=== PATIENT | male | born 1960 | race Caucasian/White ===

== ENCOUNTER 2016-02-20 23:54 | Inpatient (IN) | payer MEDICARE, MEDICAID ==
[~2016-02-20] VITALS: Ht 177.8 cm; Wt 57.4 kg
[~2016-02-20 23:54] MED LIST: ACET325T51 PO; BISA10SU9 RC; CARV25TA2 PO; CINA60TA PO; DIAZ5TAB3 PO; DOCU100C8 PO; Lactulose PO; SEVE2.4P PO; VIT1TABL50 PO
[2016-02-21] VITALS (10 sets, daily range): BP systolic 110–148; BP diastolic 67–75; PULSE 76–102; RESP 16–20; O2SAT 98–100
--- NOTE | 2016-02-21 00:09 | ED.REPORT ---
HPI-General Illness Date of Service Feb 21, 2016 ED Provider: Cassius Rondon MD This patient is a 55 year old male with a history of MS and on dialysis for renal failure brought in by EMS due to upper jaw pain. Pt. states pain started around 2100 while in bed and lasted 2 hrs. Since then, he has taken diazepam and Tylenol. He admits to diaphoresis that stopped upon arrival to ED and denies SOB, back pain, vision changes, speech changes, difficulty swallowing, chest pain, or abdominal pain. The pt denies hx of DE or previous episodes of similar symptoms. Nursing Notes Stated Complaint: HYPERCALCEMIA Chief Complaint: ENT & Mouth Nursing Notes Reviewed: Yes Allergies: Coded Allergies: Penicillins (Verified Allergy, Unknown, HIVES, 02/21/16) TAPE (Verified Allergy, Unknown, UNKNOWN, 02/21/16) aspirin (Verified Allergy, Unknown, HIVES, 02/21/16) diphenhydramine (Verified Allergy, Unknown, RASH, 02/21/16) povidone-iodine (Verified Allergy, Unknown, 06/17/14) soap (Verified Allergy, Unknown, 06/17/14) Scheduled ([Lactulose]) 15-30 GM PO PRN 15-30grams for bowel movement Carvedilol (Carvedilol) 25 Mg Tablet 25 MG PO BID Cinacalcet HCl (Sensipar) 60 Mg Tablet 60 MG PO BID Diazepam (Diazepam) 5 Mg Tablet 2.5 MG PO BID Diazepam (Diazepam) 5 Mg Tablet 7.5 MG PO HS Docusate Sodium (Docusate Sodium) 100 Mg Capsule 300 MG PO BID Sevelamer Carbonate (Renvela) 2.4 Gm Powd.pack 2.4 GM PO TID Vit B Cmplx 3/FA/Vit C/Biotin (Nephro-Mery Rx) 1 Each Tablet 1 TAB PO DAILY Scheduled PRN Acetaminophen (Acetaminophen) 325 Mg Tablet 325 MG PO Q4 PRN PRN For Pain Bisacodyl (Bisacodyl Rectal) 10 Mg Supp.rect 10 MG RC DAILY PRN PRN For Constipation Cholecalciferol (Vitamin D3) (Vitamin D3) 1,000 Unit Tab.chew 1,000 UNIT PO BID PRN PRN For Spasm General Time Seen by MD: 00:09 Chief Complaint Other (Upper jaw pain) Hx Obtained From: Patient Arrived By: Ambulance Sudden in Onset?: Yes Onset Occurred: 1 - 4 hours ago Symptom Duration: Since onset Recent Healthcare: No recent hospitalization, Recent doctor visit Similar Sx Previous: No Past Medical History Past Medical History MS melanoma psoriasis renal failure on dialysis Reports: Congestive heart failure, GERD, Hypertension Past Surgical History RT A/V fistula Smoking History Never Smoker Social History Alcohol Use: "Social" Other Social History: Good social support, Local resident Ambulatory Status Independent Review of Systems jaw pain denies changes in speech denies difficulty swallowing Full Review of Systems Respiratory: Denies: Shortness of breath Cardiovascular: Denies: Chest pain GI: Denies: Abdominal pain Musculoskeletal: Denies: Back pain Skin: Reports Diaphoresis (resolved upon arrival to ED) Neurologic: Denies: Vision change Complete sys rev & neg: except as marked. Physical Exam Vital Signs Vital Signs Date Time Temp Pulse Resp B/P Pulse Ox O2 Delivery O2 Flow Rate FiO2 02/21/16 00:06 37.2 100 16 139/72 100 Room Air Initial VS: Reviewed General/Constitutional: Well-developed, Well-nourished Head / Eyes: Atraumatic, Normocephalic, PERRL ENT: Mucous membranes moist, Conjunctiva normal, No scleral icterus Neck: Supple, Non-tender, Full range of motion Respiratory: Breath sounds normal, Clear to auscultation, No respiratory distress Extremities: Vascular intact, Neuro intact Skin: Warm, Dry, No cyanosis Neurologic: Alert, Oriented, Nonfocal Psychiatric: Mood/affect normal, Behavior normal, Normal thought content General/Constitutional: Awake, Alert Cardiovascular: Heart rate NL, Regular rhythm Heart Sounds / Murmur: Positive: Systolic murmur present.. (left upper sternal border) fistula in right upper arm Lower Extremity / Pelvis / MS: Atraumatic, Full range of motion, No edema Interpretation & Diagnostics Lab Results Interpretation Result Diagram: 02/22/16 0342 02/22/16 0342 Test 02/21/16 00:45 Total Bilirubin 0.3mg/dL (0.0-1.2) Aspartate Amino Transf (AST/SGOT) 23U/L (0-50) Alanine Aminotransferase (ALT/SGPT) 49U/L (0-44) Alkaline Phosphatase 105U/L (25-150) Total Protein 6.9g/dL (6.4-8.4) Lipase 188U/L (13-60) Hold Arguelles Top Tube Received (Received) ECG Interpretation ECG Interpretation: Sinus rhythm rate of 92 Peaked T wave in V2 V3 No ST elevation Time: 01:03 Interpreted by: ED physician Re-Eval/Medical Decision Med Decision/Clinical Course 55-year-old male history of end-stage renal disease on dialysis, MS presenting with jaw pain and diaphoresis that started at 9:00 this evening lasted 1-2 hours. Resolved prior to arrival. Potassium is 5.8. Troponins are 0.49. T-wave peaks V2 V3. Discussed with Dr. Murguia cardiology who recommended heparin drip, aspirin, Plavix, statin, stat echo and admission. Discussed with renal Dr Bowen who recommends Kayexalate 15 g and they will dialyze in the morning. Full code. Source of Hx: Old records, EMS Time of Eval: 02:21 Patient Status: Condition unchanged Re-Evaluation/Progress Note: Pt rechecked, who is resting. He is informed of lab results, diagnosis, and plan for admission. Pt. understands and agrees with plan. All questions have been addressed at this time. Consultation #1: Referral / Consult Name: Nicolas Reich MD Consulted With: Cardiology Call Returned at: 02:19 Program/Music Director: Agrees with eval, Agrees with plan Note: Consulted with Dr. Reich, pediatric psychiatrist, and he recommends heparin drip, aspirin, Plavix. Consultation #2: Referral / Consult Name: Wendy Fairbanks MD Consulted With: Nephrology Call Returned at: 02:24 Program/Music Director: Agrees with eval, Agrees with plan Note: Consulted with Dr. Fairbanks, hairspring vibrator, regarding pt's case. He agrees with the evaluation and plan. Consultation #3: Referral / Consult Name: Amanda Matamoros MD Consulted With: Hospitalist Call Returned at: 02:29 Program/Music Director: Will see patient, Agrees with eval, Agrees with plan, Accepts admit Note: Spoke with Dr. Matamoros, hospitalist, regarding pt's case. Dr. Matamoros agrees with the evaluation and agrees to admit the pt. Counseled Regarding: Diagnosis, Lab results, Need for admission Discharge & Departure Primary Impression: NSTEMI (non-ST elevated myocardial infarction) Additional Impression: Hyperkalemia Disposition: ADMITTED TO HOSPITAL Discharge Condition All VS Reviewed: Yes Condition: Stable Referrals: Dewey Moe MD [facility] Crit Care Except Billable Proc Time Spent: 105-134 minutes Services Performed: Patient management by me, Time spent at bedside, Reviewing test results, Reviewing imaging, Discussing patient care, Documentation in record, Time with fam/surrogate Scribe Attestation Portions of this note were transcribed by Simona Green and Alexsandra Yun. I, Dr. Rondon personally performed the history, physical exam and medical decision-making; I reviewed and confirmed the accuracy of the information in the transcribed note. Signed by: Simona Green and Janiya Ortiz, 2016 and 0342. copies to: Dewey Moe MD; [facility] Cassius Rondon MD Feb 21, 2016 00:09 Ariela Yun [Alexsandra] Feb 21, 2016 00:46 SIMONA GREEN Feb 21, 2016 03:42 ECG Interpretation ECG Interpretation: Sinus rhythm rate of 92 Peaked T wave in V2 V3 No ST elevation Time: 01:03 Interpreted by: ED physician Re-Eval/Medical Decision Med Decision/Clinical Course 55-year-old male history of end-stage renal disease on dialysis, MS presenting with jaw pain and diaphoresis that started at 9:00 this evening lasted 1-2 hours. Resolved prior to arrival. Potassium is 5.8. Troponins are 0.49. T-wave peaks V2 V3. Discussed with Dr. Murguia cardiology who recommended heparin drip, aspirin, Plavix, statin, stat echo and admission. Discussed with renal Dr Bowen who recommends Kayexalate 15 g and they will dialyze in the morning. Full code. Source of Hx: Old records, EMS Time of Eval: 02:21 Patient Status: Condition unchanged Re-Evaluation/Progress Note: Pt rechecked, who is resting. He is informed of lab results, diagnosis, and plan for admission. Pt. understands and agrees with plan. All questions have been addressed at this time. Consultation #1: Referral / Consult Name: Nicolas Reich MD Consulted With: Cardiology Call Returned at: 02:19 Program/Music Director: Agrees with eval, Agrees with plan Note: Consulted with Dr. Reich, pediatric psychiatrist, and he recommends heparin drip, aspirin, Plavix. Consultation #2: Referral / Consult Name: Wendy Fairbanks MD Consulted With: Nephrology Call Returned at: 02:24 Program/Music Director: Agrees with eval, Agrees with plan Note: Consulted with Dr. Fairbanks, hairspring vibrator, regarding pt's case. He agrees with the evaluation and plan. Consultation #3: Referral / Consult Name: Amanda Matamoros MD Consulted With: Hospitalist Call Returned at: 02:29 Program/Music Director: Will see patient, Agrees with eval, Agrees with plan, Accepts admit Note: Spoke with Dr. Matamoros, hospitalist, regarding pt's case. Dr. Matamoros agrees with the evaluation and agrees to admit the pt. Counseled Regarding: Diagnosis, Lab results, Need for admission Discharge & Departure Primary Impression: NSTEMI (non-ST elevated myocardial infarction) Additional Impression: Hyperkalemia Disposition: ADMITTED TO HOSPITAL Discharge Condition All VS Reviewed: Yes Condition: Stable Referrals: Dewey Moe MD [facility] Crit Care Except Billable Proc Time Spent: 105-134 minutes Services Performed: Patient management by me, Time spent at bedside, Reviewing test results, Reviewing imaging, Discussing patient care, Documentation in record, Time with fam/surrogate Scribe Attestation Portions of this note were transcribed by Simona Green and Alexsandra Yun. I, Dr. Rondon personally performed the history, physical exam and medical decision-making; I reviewed and confirmed the accuracy of the information in the transcribed note. Signed by: Simona Green and Janiya Ortiz, 2016 and 0342. copies to: Dewey Moe MD; [facility] Cassius Rondon MD Feb 21, 2016 00:09 Areila Yun [Alexsandra] Feb 21, 2016 00:46 SIMONA GREEN Feb 21, 2016 03:42
[2016-02-21 01:23] LABS: BASOPHILS % (AUTO) 0.7 % (0-3); EOSINOPHILS % (AUTO) 5.3 % (0-5); MONOCYTES % (AUTO) 5.1 % (4-12); Mean Corpuscular Hemoglobin 33.4 pg (27.0-35.0); NEUTROPHILS % (AUTO) 63.3 % (40-74); Platelet Count 158 bil/L (150-400)
[2016-02-21 01:46] LABS: Magnesium 3.1 mg/dL (1.6-2.6)
[2016-02-21] MEDS ORDERED: Heparin 25K Unit/500mL 0.45 NS 25,000 UNIT in IV Premix 1 EACH IV ONE (02:25)
[2016-02-21] MEDS ORDERED: Heparin 5,000 Unit/mL Inj IVPUSH ONE (02:25)
[2016-02-21] MEDS ORDERED: Alum-Mag Hydrox-Simeth 30 mL Suspension PO PRN ×2 (02:30→03:30)
[2016-02-21] MEDS ORDERED: Ondansetron 2 mg/mL 2 mL Inj IVPUSH PRN ×2 (02:30→03:30)
[2016-02-21] MEDS ORDERED: Heparin 5,000 Unit/mL Inj IVPUSH PRN (03:30)
[2016-02-21] MEDS ORDERED: Atropine 1 mg/10 mL (Code) Syringe IVPUSH PRN (03:30)
[2016-02-21] MEDS ORDERED: Senna-Docusate 8.6-50 mg Tablet PO PRN (03:30)
[2016-02-21] MEDS ORDERED: Polyethylene Glycol (PEG) 17 Gm Powder PO PRN (03:30)
[2016-02-21] MEDS: Sodium Chloride LOK Flush 10 mL Syringe IVFLUSH SCH ×2 (03:42→18:29)
--- NOTE | 2016-02-21 04:02 | PCM.HPMED ---
Subjective Date of Service Feb 21, 2016 Primary Provider: Admitting Physician: Amanda Matamoros MD Primary Care Physician: Nopcp Attending Physician: Amanda Matamoros MD Admit Status: From the Emergency Department, Full Admit, [facility] Telemetry Chief Complaint: Left upper jaw pain History of Present Illness: This is a 55-year-old male with a history of multiple sclerosis who essentially not able to use his arms bilaterally and legs. He also has end-stage renal disease is on hemodialysis followed by Dr. Jiang's group. He had several hours of left sided jaw pain. Started around 9:00 while he was lying in bed. Lasted for approximately 2 hours. He denies any history of coronary artery disease. He felt diaphoretic with this but did not have any shortness of breath. Denied any chest pain abdominal pain or nausea or vomiting. His dialysis days are Saturday. He does note that his potassium has been running high and prior to last dialysis on Saturday it was 6.2. He was given Kayexalate. His evaluation in the emergency room includes potassium level of 5.8 with BUN of 86 creatinine of 6.96 this first troponin was 0.49. He did have some T-wave peaks in V2 and V3. ER physician contacted Dr. Lucia damon who recommended ASA Plavix statin heparin drip along with an echocardiogram and he will see the patient in the a.m. Also nephrology Dr. Gan was called and recommended Kayexalate 15 g by mouth and will dialyze in the morning. Review of Systems: Patient denies any fevers chills denies cough or other review of systems are reviewed and are negative except for as in history of present illness. Allergies Coded Allergies: Penicillins (Verified Allergy, Unknown, HIVES, 02/21/16) TAPE (Verified Allergy, Unknown, UNKNOWN, 02/21/16) aspirin (Verified Allergy, Unknown, HIVES, 02/21/16) diphenhydramine (Verified Allergy, Unknown, RASH, 02/21/16) povidone-iodine (Verified Allergy, Unknown, 06/17/14) soap (Verified Allergy, Unknown, 06/17/14) Home Medications Scheduled ([Lactulose]) 15-30 GM PO PRN 15-30grams for bowel movement Carvedilol (Carvedilol) 25 Mg Tablet 25 MG PO BID Cinacalcet HCl (Sensipar) 60 Mg Tablet 60 MG PO DAILY Diazepam (Diazepam) 5 Mg Tablet 5 MG PO BID Diazepam (Diazepam) 5 Mg Tablet 5 MG PO HS Docusate Sodium (Docusate Sodium) 100 Mg Capsule 300 MG PO BID Sevelamer Carbonate (Renvela) 2.4 Gm Powd.pack 2.4 GM PO TID Vit B Cmplx 3/FA/Vit C/Biotin (Nephro-Mery Rx) 1 Each Tablet 1 TAB PO DAILY Scheduled PRN Acetaminophen (Acetaminophen) 325 Mg Tablet 325 MG PO Q4 PRN PRN For Pain Bisacodyl (Bisacodyl Rectal) 10 Mg Supp.rect 10 MG RC DAILY PRN PRN For Constipation PMH Past Medical History MS melanoma psoriasis Reports: Congestive heart failure, GERD, Hypertension Past Surgical History RT A/V fistula Family History Denies any family history of coronary artery disease or renal disease Social History Hx Alcohol Use: Yes (Quit drinking alcohol 20 years ago) Hx Substance Use: No Hx Tobacco Use: No Smoking Status: Never Smoker Living Arrangement: with Family Exam Vital Signs Vital Sign - Last Date Time Temp Pulse Resp B/P Pulse Ox O2 Delivery O2 Flow Rate FiO2 02/21/16 00:06 37.2 100 16 139/72 100 Room Air Intake and Output 02/20/16 02/20/16 02/21/16 Cumulative From/Thru 15:00 23:00 07:00 02/21/16 00:06 - 02/21/16 01:31 Intake Total 1000 ml 1000 ml Balance 1000 ml 1000 ml Intake IV Total 1000 ml 1000 ml Exam Constitutional: Middle-aged male in no acute distress Head: Normocephalic/atraumatic Eyes: PERRLA DC EOMI Mouth: No lesions noted Neck: Carotids 2+ over 4 without bruits, no adenopathy Chest: Clear to auscultation Cor: Regular rate and rhythm S1-S2 over 6 systolic ejection murmur Abdomen: Soft nontender bowel sounds present Extremities: No pedal edema noted, has contractures of both upper and lower extremities Psych: Mood and affect appear appropriate Skin: No rashes noted Neuro: Alert and oriented 3, contractures as noted of upper and lower extremities Lab and Diagnostics Labs Laboratory Tests 72 Hours Test 02/21/16 00:45 White Blood Count 4.3th/mm3 (3.8-10.1) Red Blood Count 3.53mil/mm3 (4.40-5.80) Hemoglobin 11.8g/dL (13.8-17.2) Hematocrit 34.6% (41.0-50.0) Mean Corpuscular Volume 98.0fL (81-100) Mean Corpuscular Hemoglobin 33.4pg (27.0-35.0) Mean Corpuscular Hemoglobin Concent 34.1% (32.0-37.0) Red Cell Distribution Width 12.5% (12.3-15.4) Platelet Count 158bil/L (150-400) Neutrophils (%) (Auto) 63.3% (40-74) Lymphocytes (%) (Auto) 25.6% (14-46) Monocytes (%) (Auto) 5.1% (4-12) Eosinophils (%) (Auto) 5.3% (0-5) Basophils (%) (Auto) 0.7% (0-3) Sodium Level 140mEq/L (134-144) Potassium Level 5.8mEq/L (3.5-5.2) Chloride Level 98mEq/L (97-108) Carbon Dioxide Level 24mmol/L (18-29) Blood Urea Nitrogen 86mg/dL (6-24) Creatinine 6.96mg/dL (0.76-1.27) Estimat Glomerular Filtration Rate 9mL/min (>59) Glucose Level 84mg/dL (60-99) Calcium Level 9.0mg/dL (8.5-10.1) Magnesium Level 3.1mg/dL (1.6-2.6) Total Bilirubin 0.3mg/dL (0.0-1.2) Aspartate Amino Transf (AST/SGOT) 23U/L (0-50) Alanine Aminotransferase (ALT/SGPT) 49U/L (0-44) Alkaline Phosphatase 105U/L (25-150) Troponin T 0.490ug/L (0.0-0.011) Total Protein 6.9g/dL (6.4-8.4) Albumin 4.0g/dL (3.4-5.0) Lipase 188U/L (13-60) Hold Arguelles Top Tube Received (Received) Result Diagram: 02/21/16 0045 02/21/16 0045 X-Rays, CTs and MRIs Chest x-ray is pending at the time of this dictation 12-lead ECG Sinus rate of [address] segment changes V2 V3 peak T-wave Assessment & Plan # NSTEMI, acute, present on admission Has elevated troponin with left jaw pain Cardiology was notified by ER MLinus and recommended IV heparin protocol, ASA, Plavix and statin We will check echocardiogram in a.m. We will order nuclear pharmacological stress test in AM Cardiology to see in a.m. We will placed on nitro paste topically # Hyperkalemia with some EKG changes, acute, present on admission Nephrology was notified by ER MLinus and recommended by mouth Kayexalate We will place on telemetry Repeat potassium level in the next several hours # End stage renal disease on hemodialysis, chronic, present on admission Nephrology was notified by ER Elie and will dialyze tomorrow # Multiple sclerosis, chronic, present on admission Currently progressive # DVT prophylaxis Patient currently is on cardiac IV heparin protocol # CODE STATUS Patient is full code Pain Evaluation: Adequate Pain Control GI Prophylaxis: H2 adela VTE Prophylaxis: Other (cardiac IV heparin protocol) Resuscitation Status: CPR: Attempt Resuscitation Time spent 60 minutes Attending Statement Pt seen and examined by myself and agree with above plan. Amanda Matamoros MD Feb 21, 2016 04:02
--- NOTE | 2016-02-21 04:30 | NUR ---
Admit Received report from Mateo Masterson who brought patient to floor total assist to slide to bed from [facility] d/t quadriplegic from end stage MS, dx NSTEMI and hyperkalemia, patient refusing anticoagulants ordered d/t poor reaction in past w/severe bleeding, contracture of hands and feet skin check no open areas some bandaids on back "covering moles that are painful", soft call light placed under chin as he has movement of head and neck only. He is to get dialysis today Addendum: 02/22/16 at 0418 by GUERO JEAN RN Patient refused anticoagulants ordered heparin gtt. plavix and has allergy to aspirin
[2016-02-21 06:25] LABS: TROPONIN T 2.23 ug/L (0.0-0.011)
[2016-02-21 06:38] LABS: Magnesium 3.2 mg/dL (1.6-2.6)
[2016-02-21] MEDS: RENVELA 800 MG PO SCH ×3 (08:30→19:15)
--- NOTE | 2016-02-21 09:03 | DRSVH ---
PROCEDURE: X-RAY CHEST ONE VIEW, PORTABLE ([id number]) INDICATIONS: ELEVATED TROPONIN TECHNIQUE: One view of the chest was acquired. COMPARISON: [facility], , CHEST 1VW (PORTABLE), 11/24/2011, 17:21. FINDINGS: Surgical changes and devices: None. Lungs and pleura: No pleural effusions or pneumothorax. Lungs are normal considering mildly reduced inspiratory volume. Mediastinum: Mediastinal contours appear normal. Heart size is normal. Bones and chest wall: No suspicious bony lesions. Overlying soft tissues appear unremarkable. IMPRESSION: The patient's hand overlies the lower right chest and heart. Mildly reduced inspiratory volume, no acute disease. Dictated by: Ronaldo Chand M.D. on 02/21/2016 at 9:01 Approved by: Ronaldo Chand M.D. on 02/21/2016 at 9:01
[2016-02-21] MEDS: Vitamin B Complex/Vit C Tablet PO SCH (09:54)
[2016-02-21] MEDS: Nitroglycerin 2% 1 Gm Ointment TOPICAL SCH ×2 (09:54→14:30)
--- NOTE | 2016-02-21 11:28 | DRSVH ---
[facility] [address] [place] [address] Echocardiogram Report Name: LYNETTE MELGAR RStudy Date: 02/21/2016 Height: 70 in Hospital Exam Location: [facility] Weight: 122 lb Gender: Male BSA: 1.7 m2 : 1960 Age: 55 yrs BP: 148/72 mmHg Reason For Study: Chest pain Ordering Physician: HOSPITALIST [facility] Performed By: Jonathan Law Referring Physician: JEOVANNY HOLCOMB Interpretation Summary The left ventricle is normal in size. The ejection fraction is estimated to be 55-60%. There is akinesis of apex, apical inferior wall and apical inferoseptum. There is a severe hypokinesis of distal anterior wall and distal lateral wall as well. These wall motion abnormalities are new. The right ventricle is normal size. The right ventricular systolic function is normal. No significant valvular pathology seen. There is aortic root sclerosis/calcification. Procedure: A two-dimensional transthoracic echocardiogram with color flow and Doppler was performed. The study quality was technically good. Comparison is made with the echocardiogram of 03/22/11. The patient was in normal sinus rhythm during the exam. Left Ventricle: The left ventricle is normal in size. Left ventricular wall thickness is borderline increased. Proximal septal thickening is noted. There is no echo evidence for significant left ventricular outflow tract obstruction. A false chord is noted (normal variant). The ejection fraction is estimated to be 55-60%. There is akinesis of apex, apical inferior wall and apical inferoseptum. There is a severe hypokinesis of distal anterior wall and distal lateral wall as well. These wall motion abnormalities are new. Spectral Doppler of the mitral valve is reversed, with an E/A wave ratio < 1.0. Right Ventricle: The right ventricle is normal size. A calcified moderator band is seen in the right ventricle. The right ventricular systolic function is normal. Atria: The left atrium grossly appears normal in size. The right atrium grossly appears normal in size. The interatrial septum is intact with no evidence for an atrial septal defect. Mitral Valve: The mitral valve leaflets are mildly calcified. There is moderate mitral annular calcification. There is trace mitral regurgitation. Aortic Valve: The aortic valve is trileaflet. The aortic valve is mildly calcified. There is no hemodynamically significant valvular aortic stenosis. No aortic regurgitation is present. Tricuspid Valve: The tricuspid valve is normal. There is trace tricuspid regurgitation. The right ventricular systolic pressure is estimated at 34 mmHg assuming a right atrial pressure of 3 mm Hg. Pulmonic Valve: The pulmonic valve is not well visualized. There is no pulmonic valvular regurgitation. Great Vessels: The aortic root is normal size. There is aortic root sclerosis/calcification. The ascending aorta could not be visualized. An artifact seen in the aortic arch. The pulmonary artery is normal size. The IVC is of normal diameter and collapses greater than 50% with a sniff. This suggests a low right atrial pressure of 3 mm Hg. Pericardium/ Pleura There is no pericardial effusion. There is no pleural effusion. MMode/2D Measurements & Calculations LVIDd LVOT diam: 2.2 cm LV arias. diameter/BSALV sys. diameter/BSA : 4.8 cm Ao root diam: 3.1 cm (cm/m^2): 2.8 (cm/m^2): 2.1 LVIDs Ao Arch Diam : 3.5 cm (Proximal trans.) FS: 26.7 % EPSS : 0.6cm IVSd: 1.0 cm LVPWd : 1.1 cm RVD1 TAPSE: 2.7 cm (basal) : 4.1 cm Doppler Measurements & Calculations Ao V2 max MV E max ike MV E/A: 0.86 TR max ike : 214.3 cm/sec : 114.1 cm/sec Med Peak E' Ike : 278.0 cm/sec Ao max P.4 mmHg MV A max ike TR max PG Ao mean P.5 mmHg : 132.3 cm/sec E/E' med: 15.7 : 30.9 mmHg LVOT Max Ike Lat Peak E' Ike PA V2 max : 135.9 cm/sec MVA(VTI): 3.2 cm2 : 146.3 cm/sec E/E' lat: 10.4 PA mean PG MATT(I,D): 2.3 cm Pulm A Revs Dur : 4.0 mmHg sev ratio: 0.60 MV A dur: 0.13 sec MV V2 mean Ao V2 mean LV V1 max PG PA V2 mean : 101.0 cm/sec : 143.9 cm/sec : 93.2 cm/sec MV mean P.7 mmHg Ao V2 VTI LV V1 VTI: 25.0 cm MV V2 VTI: 29.4 cm MV dec time: 0.14 sec MATT(V,D): 2.4 cm2 MATT indexed to BSA E/e' average Pulm A Revs Dur - MV (cm^2/m^2): 1.3 A Dur: -0.02 msec Reading Physician:HERON
--- NOTE | 2016-02-21 12:22 | NUR ---
Social Work Initial Assessment: SW met with patient at bedside to discuss discharge plan. Patient is a 55 year old male admitted on 02/21/16 for N Stemi hyperkalemia. Patient payer as Medicare and [facility] secondary. Patient states PCP as MD Matthews. Patient states residing in [place] with brother who assists 24hr/day and additional assistance provided with 2 caregivers from [employer] caregiver services, and [employer]. Patient states services provided via [employer]. SW contacted [facility] watch case polisher Joelle Tolentino, and left voice mail message to confirm active services and fax number to fax clinical information. SW also contacted [facility] and left voice mail message to verify service arrangements. Patient states home is wheelchair assessible for home wheelchair he has available for use. Patient has a commode in addition. Patient states pharmacy of choice as [facility]. Patient has no previous SNF history. patient states that he attends HD on T, Th, and Sat and analysis intern as MD Pablo. Patient transports to HD via [employer] [facility]. SW inquired about transport home upon discharge. Patient states possible options to be discussed at discharge as his brother to assist or ambulance transfer may be needed. SW to follow to determine cardiology recommendations for cath. SW to follow. PLAN: Home with continued 24/hr care and support and caregiver services via [employer] (LM for [facility], clinicals pending fax/discussion with location manager). Transport home via brother or ambulance. Current with HD. SW to follow. Louise HERNANDEZ Addendum: 02/21/16 at 1231 by FLAQUIAT HEBERT Amended: Links added. Addendum: 02/21/16 at 1258 by FLAQUITA HEBERT CARLITOS spoke to [facility] rep Mendoza who states that patient is current with services via [facility]. Caregiver attends M/W/F from 7-4:30 to provide service care assistance. Rep confirmed that [facility] home health care case manager is on vacation until today and will return back tomorrow. SW to follow up with [facility] tomorrow. SW to follow. Louise HERNANDEZ
--- NOTE | 2016-02-21 13:44 | CONS ---
[address] [address] CONSULTATION REPORT PATIENT: LYNETTE MELGAR : 1960 MR#: [id number] ADMIT: 02/21/2016 JOB ID: [id number] DATE OF SERVICE: 02/21/2016 CARDIOLOGY CONSULTATION: REQUESTED BY: Dr. Matamoros REASON FOR EVALUATION: Elevated troponin. HISTORY: The patient is a pleasant 55-year-old male with history of chronic progressive multiple sclerosis since 1988 when he was 27 years old. He started with numbness in his legs and then he developed progressive weakness. He is currently quadriplegic. He is only able to move from his neck up. He also has chronic renal failure since December of 1997 and has been on hemodialysis ever since. The patient lives at home, taken care by his brother and caregiver. Last night, while he was in bed around 9 p.m., he suddenly had his teeth hurt. It happened in both upper and lower and he had jaw pain. He rated it about 5/10. It was associated with diaphoresis. He denies shortness of breath or nausea. He felt scared since it reminded him of his mother when she had a heart attack. It lasted for a couple hours before he was brought to the emergency department. The patient has had no recurrent jaw or teeth pain since admission. PAST MEDICAL HISTORY: 1. Chronic progressive multiple sclerosis since 1988. 2. End-stage renal failure on hemodialysis since December of 1997. 3. Hypertension. PAST SURGICAL HISTORY: Right arm AV fistula surgery. MEDICATIONS PRIOR TO HOSPITALIZATION: 1. Carvedilol 25 mg twice a day. 2. Cinacalcet 60 mg daily. 3. Diazepam 5 mg b.i.d. and h.s. 4. Docusate sodium 300 mg b.i.d. 5. Sevelamer carbonate 2.4 g powder pack p.o. t.i.d. 6. Vitamin B complex. 7. Biotin 1 tablet daily. 8. Lactulose 15-30 g p.o. p.r.n. 9. Acetaminophen p.r.n. 10. Bisacodyl rectal suppositories p.r.n. ALLERGIES TO: ASPIRIN (he was told that he had some reaction when he was very young), TAPE, DIPHENHYDRAMINE. SOCIAL HISTORY: The patient has never smoked. He quit drinking alcohol 20 years ago. He lives at home with his family. FAMILY HISTORY: His father from heart attack at age 69. His mother at age 90. REVIEW OF SYSTEMS: All 10 systems are reviewed and pertinent as outlined above. He always has dry mouth since he drinks a little water each day. PHYSICAL EXAMINATION: Reveals a thin, middle-aged male, lying in bed, in no acute distress. Temperature is 36.8. Blood pressure is 127/75. Pulse 76. Head and face have normal configuration. Anicteric sclerae. Dry mucosa. Neck supple. No jugular venous distention. Chest: Limited chest expansion. Lungs are clear to auscultation anteriorly. Heart: The first and second heart sounds are normal. Continuous murmur, likely secondary to fistula flow. Abdomen: Soft, nontender. Extremities: No clubbing, cyanosis or edema. Flexion contracture. Right arm AV fistula is noted. Neurology: Awake, oriented x3. He has quadriplegia. Sensory to light touch and pain is preserved. BLOOD TESTS: Show hemoglobin 11.8, WBC 4.3, platelet 158. Sodium 140, potassium 5.8, chloride 98, bicarbonate 24, BUN 86, creatinine 6.96, glucose 84, magnesium 3.1. Troponin 0.49, 2.23 and 3.65. TSH 2.56. EKG at 1 a.m. showed sinus rhythm, rate 92 beats per minute. Probable left ventricular hypertrophy. Echocardiogram on February 21, 2016 showed normal left ventricular size with ejection fraction 55%-60%. There is akinesis of apex, apical inferior wall and apical inferior septum. There is severe hypokinesis of the distal anterior wall and distal lateral wall as well. No valvular abnormality. IMPRESSION: 1. Non ST elevated myocardial infarction. 2. Chronic progressive multiple sclerosis. 3. Chronic renal failure on hemodialysis. 4. History of hypertension. PLAN: I explained to the patient and his brother that the patient had an acute coronary event last night. We discussed treatment option regarding medical management, coronary angiogram and possible percutaneous intervention and coronary artery bypass surgery. He is not a suitable candidate for bypass surgery in view of his quadriplegia. He does not want to undergo coronary angiogram and percutaneous coronary intervention at this time. He would like us to manage him conservatively. The patient reports that he bled easily from his fistula. 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 He is already taking carvedilol 25 mg twice daily. I would like to add clopidogrel 75 mg once daily. ANA inhibitor could not be used due to hyperkalemia. I would also like to add statin. We also discussed the code status. The patient would like to receive CPR and intubation. MTDD
--- NOTE | 2016-02-21 17:19 | PCM.PNMED ---
Subjective Date of Service Feb 21, 2016 Subjective Pt seen and examined. Patient has no complaints of chest pain at the moment and is resting comfortably. Exam Vital Signs Vital Sign - Last Date Time Temp Pulse Resp B/P Pulse Ox O2 Delivery O2 Flow Rate FiO2 02/21/16 12:56 92 02/21/16 08:30 36.8 18 127/75 98 Room Air Intake and Output 02/20/16 02/20/16 02/21/16 Cumulative From/Thru 15:00 23:00 07:00 02/21/16 00:06 - 02/21/16 06:01 Intake Total 1000 ml 1000 ml Balance 1000 ml 1000 ml Intake IV Total 1000 ml 1000 ml Exam General: Obese man sitting forward moderate distress HEENT: sclerae anicteric, oral mucosa moist Neck: no JVD Chest: clear to auscultation Cardiac: S1S2, no murmur Abdomen: BS present, non-tender to palpate Extremities: No edema Neuro: A&O, cranial nerves symmetric, motor strength 5/5, IVs and Medications Medications Reviewed: Medications were reviewed in detail Lab and Diagnostics Result Diagram: 02/21/16 0045 02/21/16 0045 X-Rays, CTs and MRIs Chest x-ray is pending at the time of this dictation 12-lead ECG Sinus rate of [address] segment changes V2 V3 peak T-wave Assessment & Plan # NSTEMI, acute, present on admission Has elevated troponin with left jaw pain Cardiology was notified by NEEMA Delgadillo and recommended IV heparin protocol, ASA, Plavix and statin Cardiology input appreciated will add plavix and statin as per cardiology recs will continue to treat the patient conservatively for the time being # Hyperkalemia with some EKG changes, acute, present on admission Pt underwent dialysis today will follow up repeat bmp to assess potassium level # End stage renal disease on hemodialysis, chronic, present on admission - dialyzed today # Multiple sclerosis, chronic, present on admission Currently progressive # DVT prophylaxis Patient currently is on cardiac IV heparin protocol # CODE STATUS Patient is full code GI Prophylaxis: H2 adela VTE Prophylaxis: Other (cardiac IV heparin protocol) Resuscitation Status: CPR: Attempt Resuscitation Seth Carreon MD Feb 21, 2016 17:19
--- NOTE | 2016-02-21 17:20 | NUR ---
Dialysis note: 4 hrs tx. 1000 ml net UF. Right upper arm fistula. Pls see DTR for VS details. Qb 400. No heparin given. O2 @ 2L via NC on. Stable tx. Fistula needle sites clotted w/in 15 min. Report given to Cecelia SMITH. Transferred back to patient's room in stable condition.
--- NOTE | 2016-02-21 18:26 | CONS ---
[address] [address] CONSULTATION REPORT PATIENT: LYNETTE MELGAR : 1960 MR#: [id number] ADMIT: 02/21/2016 JOB ID: [id number] DATE OF SERVICE: 02/21/2016 REQUESTING PHYSICIAN: Amanda Matamoros MD. REASON FOR CONSULTATION: Management of end-stage renal disease. CHIEF COMPLAINT: Bilateral jaw pain. PRESENT ILLNESS: This is a very pleasant, 55-year-old, male with significant past medical history of end-stage renal disease on hemodialysis every Saturday, and Saturday for 18 years, multiple sclerosis with quadriplegia who presented to the hospital with a complaint of bilateral jaw pain. Apparently last night, while he was in bed he suddenly had bilateral jaw pain associated with diaphoresis. He did not have any chest pain or shortness of breath. The patient came to the emergency department and the symptoms went away completely. Initial workup showed the troponin of 0.490 and has risen to 3.65. He was evaluated by a senior informatica etl developer. Echocardiogram was done, showed ejection fraction of 55% to 60%, akinesis of apex, apical inferior wall and apical inferior septum, a severe hypokinesis of the distal anterior wall and distal lateral wall. According to cardiology note, percutaneous stent is not suitable for the patient given chronic history of multiple sclerosis and quadriplegia. Likewise, the patient does not want to proceed with any invasive procedure at this moment. Renal was consulted to resume dialysis while the patient is hospitalized. PAST MEDICAL HISTORY: 1. Multiple sclerosis with quadriplegia. 2. End-stage renal disease on hemodialysis every Saturday, , Saturday for 18 years. He is a patient of Dr. MATEO Denis. 3. Hypertension. 4. Anemia of chronic kidney disease. 5. Renal osteodystrophy. PAST SURGICAL HISTORY: Status post left arm AV fistula creation. FAMILY HISTORY: Positive for heart attack in the family. SOCIAL HISTORY: The patient denies current use of alcohol, tobacco, or illicit drugs. He has two caregivers at home. He lives with his brother. REVIEW OF SYSTEMS: Fourteen point review of systems was performed. ALLERGIES: 1. PENICILLINS. 2. TAPE. 3. ASPIRIN. 4. BENADRYL. 5. IODINE. 6. SOAP. MEDICATIONS: Reviewed. PHYSICAL EXAMINATION: Vitals: Temperature 36.8, pulse 96, respiratory rate 18, blood pressure 127/75, O2 sat 98% on room air. General appearance: A very pleasant gentleman, awake, alert and oriented x3. No acute distress. HEENT: No pallor. No jaundice. No JVD. No lymphadenopathy. No thyroid enlargement. Heart: Regular rhythm. Normal S1, S2. Murmur noted. No gallops. Abdomen is soft. Active bowel sounds. No hepatosplenomegaly. Nontender, nondistended. Active bowel sounds. Extremity: No edema, cyanosis or clubbing of fingers. Generalized muscle atrophy. Right AV fistula with good thrill and bruit. LABORATORY: WBC 4.3, hemoglobin 11.8, sodium 140, potassium 5.8, chloride 98, bicarb 24, BUN 86, creatinine 6.96. ASSESSMENT: 1. End-stage renal disease on hemodialysis every Saturday, , and Saturday. 2. Hyperkalemia. 3. Non-ST elevation myocardial infarction. 4. Multiple sclerosis. 5. Anemia in chronic kidney disease. PLAN: 1. From a renal standpoint, we will resume dialysis as per schedule. He is normally on dialysis for 4 hours with fluid removal 2-3 L. 2. We will monitor along with the primary care team. Thank you for the consultation. We will monitor.
[2016-02-21] MEDS ORDERED: CHOL10008 PO (21:47)
--- NOTE | 2016-02-21 22:00 | NUR ---
Medications Patient voiced some concern about not continuing his regular regime Clarified w/patient and MD approved update also d/c'd hossein nitro paste
[2016-02-22 02:20] VITALS: BP 100/55; PULSE 96; RESP 18; O2SAT 98
[2016-02-22] MEDS: Sodium Chloride LOK Flush 10 mL Syringe IVFLUSH SCH ×3 (02:32→17:06)
[2016-02-22 03:50] LABS: BASOPHILS % (AUTO) 0.7 % (0-3); EOSINOPHILS % (AUTO) 5.6 % (0-5); MONOCYTES % (AUTO) 7.6 % (4-12); Mean Corpuscular Hemoglobin 33.1 pg (27.0-35.0); Mean Corpuscular Volume 99.1 fL (81-100); NEUTROPHILS % (AUTO) 50.7 % (40-74); Platelet Count 167 bil/L (150-400)
[2016-02-22 04:27] LABS: Magnesium 2.4 mg/dL (1.6-2.6); Phosphorus 4.6 mg/dL (2.5-4.9)
[2016-02-22 04:29] LABS: TROPONIN T 5.53 ug/L (0.0-0.011)
[2016-02-22 06:10] VITALS: BP 107/61; PULSE 82; RESP 18; O2SAT 98
[2016-02-22 08:00] VITALS: PULSE 92
[2016-02-22] MEDS: RENVELA 800 MG PO SCH ×3 (11:06→19:47)
[2016-02-22] MEDS: Vitamin B Complex/Vit C Tablet PO SCH (11:07)
[2016-02-22 13:09] VITALS: BP 133/69; PULSE 88; RESP 16; O2SAT 99
--- NOTE | 2016-02-22 13:11 | NUR ---
Turning Pt refused q2h turns despite education. Continue to offer q2h.
--- NOTE | 2016-02-22 13:58 | NUR ---
Social Work: Continued d/c planning Data: Pt is on day 1 of hospitalization. EMR reviewed. TRAFFIC CONTROLLER CABLE received a voice mail from Joelle Martinez with [facility] [phone] requesting informatin on pt. TRAFFIC CONTROLLER CABLE called her back, no answer, left a message with a brief update and requesting a call back from Joelle with the best fax number for her to receive clinicals. TRAFFIC CONTROLLER CABLE will continue to follow. Assessment: Pt with caregiving at baseline. Plan: Pt will likely d/c home via POV with brother or via ambulance when medically stable with 24 hour care and [facility] caregiving. TRAFFIC CONTROLLER CABLE will continue to follow. DAVID Hyde
[2016-02-22] MEDS: Heparin 25K Unit/500mL 0.45 NS 25,000 UNIT in IV Premix 1 EACH IV SCH (17:07)
--- NOTE | 2016-02-22 17:28 | PCM.PNMED ---
Subjective Date of Service Feb 22, 2016 Subjective Pt seen and examined and patients hospital course discussed at length. Patient yesterday was refusing any treatment for his diagnosis of NSTEMI. When questioned he stated that he had his own reasoning. Patient was told the possibilities of what could occur if he was not careful about the medical treatment he would be recieiving. Additionally patient was seen by cardiology who reiterated that the patient would benefit from a cardiac catherization. Again patient refused it and did not want any medical therapy. Today all the risks and benefits were discussed with the patient and given his experience during the stress test he is more amenable to have medical management as well as cardiac catherization if possible. Patient otherwise has been doing well overnight with no acute events. Exam Vital Signs Vital Sign - Last Date Time Temp Pulse Resp B/P Pulse Ox O2 Delivery O2 Flow Rate FiO2 02/22/16 13:09 37.2 88 16 133/69 99 Room Air Intake and Output 02/21/16 02/21/16 02/22/16 Cumulative From/Thru 15:00 23:00 07:00 02/21/16 00:06 - 02/22/16 06:10 Intake Total 360 ml 60 ml 1420 ml Output Total 1000 ml 0 ml 1000 ml Balance -1000 ml 360 ml 60 ml 420 ml Intake Oral 360 ml 60 ml 420 ml IV Total 1000 ml Output Urine Total 0 ml 0 ml Ultrafiltrate 1000 ml 1000 ml # Bowel Movements 0 0 Exam General: Well appearing male, with contractions HEENT: sclerae anicteric, oral mucosa moist Neck: no apparent JVD Chest: clear to auscultation Cardiac: S1S2, no murmur Abdomen: BS active, non-tender, not bloated or tympanitic Extremities: No edema, avf looks appropriate Neuro: A&O, cranial nerves symmetric, motor strength and coordination normal Lab and Diagnostics Result Diagram: 02/22/1634102/22/16 034 X-Rays, CTs and MRIs Chest x-ray is pending at the time of this dictation 12-lead ECG Sinus rate of [address] segment changes V2 V3 peak T-wave Assessment & Plan # NSTEMI, acute, present on admission Has elevated troponin with left jaw pain Cardiology was notified by NEEMA Delgadillo and recommended IV heparin protocol, ASA, Plavix and statin Cardiology input appreciated will add plavix and statin as per cardiology recs given patient new wishes will restart the heparin drip and await stress test results will discuss with cardiology tomorrow to as whether patient would benefit from cardiac catherization # Hyperkalemia with some EKG changes, acute, present on admission Pt underwent dialysis yesterday will follow up repeat bmp in the am # End stage renal disease on hemodialysis, chronic, present on admission - dialyzed yesterday # Multiple sclerosis, chronic, present on admission Currently progressive # DVT prophylaxis Patient currently is on cardiac IV heparin protocol # CODE STATUS Patient is full code GI Prophylaxis: H2 adela VTE Prophylaxis: Other (cardiac IV heparin protocol) Resuscitation Status: CPR: Attempt Resuscitation Seth Carreon MD Feb 22, 2016 17:28
--- NOTE | 2016-02-22 19:07 | NUR ---
Heparin Drip Patient started on cardiac heparin drip, pt previously refused. Started at 800units/hr.
[2016-02-22 19:28] VITALS: BP 109/69; PULSE 87; RESP 17; O2SAT 97
[2016-02-22 20:55] VITALS: BP 115/70; PULSE 84; RESP 18; O2SAT 97
--- NOTE | 2016-02-22 22:45 | NUR ---
Suppository Gave suppository per request , states usually part of home routine Addendum: 02/23/16 at 0642 by GUERO JEAN RN patient result w/some loose stool and small soft formed BM
[2016-02-23] VITALS (8 sets, daily range): BP systolic 95–146; BP diastolic 62–80; PULSE 81–99; RESP 16–20; O2SAT 96–99
[2016-02-23] MEDS: Sodium Chloride LOK Flush 10 mL Syringe IVFLUSH SCH ×3 (00:30→16:30)
--- NOTE | 2016-02-23 08:04 | NUR ---
Digital stimulation Per patient request provided digital stimulation. able to remove med amount of soft brown stool. Pt reports no BM since Saturday.
[2016-02-23] MEDS: RENVELA 800 MG PO SCH ×3 (08:30→20:57)
[2016-02-23] MEDS: Vitamin B Complex/Vit C Tablet PO SCH (08:35)
--- NOTE | 2016-02-23 09:30 | NUR ---
Resting Stress test Pt taken in bed to nuc med for resting stress test. Brought back at 1015. Tele replaced - called to confirm, SR [phone]
--- NOTE | 2016-02-23 11:18 | PCM.PNMED ---
Subjective Date of Service Feb 23, 2016 Subjective s/p stress test today. on heparin gtt. seen at HD unit. stable, no CP/SOB/jaw pain. Exam Vital Signs Vital Sign - Last Date Time Temp Pulse Resp B/P Pulse Ox O2 Delivery O2 Flow Rate FiO2 02/23/16 08:57 36.9 87 16 134/77 99 Room Air Intake and Output 02/22/16 02/22/16 02/23/16 Cumulative From/Thru 15:00 23:00 07:00 02/21/16 00:06 - 02/23/16 05:29 Intake Total 120 ml 33 ml 100 ml 1673 ml Output Total 0 ml 1000 ml Balance 120 ml 33 ml 100 ml 673 ml Intake Oral 120 ml 100 ml 640 ml IV Total 33 ml 1033 ml Output Urine Total 0 ml 0 ml Ultrafiltrate 1000 ml # Voids 1 1 # Bowel Movements 0 1 1 Exam PHYSICAL EXAMINATION: General appearance: A very pleasant gentleman, awake, alert and oriented x3. No acute distress. HEENT: No pallor. No jaundice. No JVD. No lymphadenopathy. No thyroid enlargement. Heart: Regular rhythm. Normal S1, S2. Murmur noted. No gallops. Abdomen is soft. Active bowel sounds. No hepatosplenomegaly. Nontender, nondistended. Active bowel sounds. Extremity: No edema, cyanosis or clubbing of fingers. Generalized muscle atrophy. Right AV fistula with good thrill and bruit. Lab and Diagnostics Result Diagram: 02/22/1634102/22/16 034 X-Rays, CTs and MRIs Chest x-ray is pending at the time of this dictation 12-lead ECG Sinus rate of [address] segment changes V2 V3 peak T-wave Assessment & Plan ASSESSMENT: 1. End-stage renal disease on hemodialysis every Saturday, , and Saturday. 2. Hyperkalemia, resolved 3. Non-ST elevation myocardial infarction. 4. Multiple sclerosis. 5. Anemia in chronic kidney disease. PLAN: - HD as per schedule Q Sat-. - The rest of management as per primary team. GI Prophylaxis: H2 adela VTE Prophylaxis: Other (cardiac IV heparin protocol) Resuscitation Status: CPR: Attempt Resuscitation Wendy Fairbanks MD Feb 23, 2016 11:18
[2016-02-23] MEDS ORDERED: 0.9% Sodium Chloride 0 ML ONE (12:10)
[2016-02-23] MEDS ORDERED: Heparin 5,000 Units/500 mL NS Premix IV ONE (12:10)
[2016-02-23] MEDS ORDERED: Heparin 1,000 Units/500 mL NS Premix IV ONE (12:10)
[2016-02-23] MEDS: Heparin 25K Unit/500mL 0.45 NS 25,000 UNIT in IV Premix 1 EACH IV SCH ×3 (12:42→23:00)
--- NOTE | 2016-02-23 13:04 | DRSVH ---
PROCEDURE: 2 DAY STRESS TEST Rest and pharmacological stress myocardial perfusion SPECT with gated imaging and ejection fraction RADIOPHARMACEUTICAL: 21.0 mCi Tc-99m tetrafosmin IV at rest and 21.7 mCi Tc-99m tetrafosmin IV at pea k effect of pharmacological stress. [id number] was performed. INDICATIONS: Elevated troponin TECHNIQUE: Radiopharmaceutical was injected at peak stress test, and also at rest. SPECT images wer e obtained. SPECT myocardial perfusion images were displayed in short axis, horizontal long axis, an d vertical long axis views. Gated images were reviewed using [employer] software. COMPARISON: None. CARDIAC STRESS: A pharmacologic stress test was performed under the supervision of an attending staff, using an infus ion of Regadenoson. Hemodynamic data: There is normal blood pressure and heart rate response to pharmacologic stress. Symptoms: The patient developed chest tightness with radiation to the jaw. Symptoms were relieved af ter patient received intravenous aminophylline. Aminophylline: 125 mg IV EKG: No diagnostic changes of ischemia; no ectopy. FINDINGS: Raw data: There is good myocardial uptake of radiotracer. No significant motion artifacts. Left ventricle function: Gated images demonstrate hypokinesis along the apical wall during resting b ut dyskinesis during post-stress. Left ventricle resting end diastolic volume is 118 mL. Left ventr icle stress ejection fraction is 62%; normal range is above 45%. Myocardial perfusion: There is a large sized perfusion defect with moderate to severe intensity invo lving the apical wall as well as the anterior wall during stress. The perfusion defect improves signi ficantly during resting images. There is still a very mild perfusion defect abnormality involving pre dominantly the apex. IMPRESSION: Findings are consistent with significant ischemia most likely along the mid to distal LAD territory. The LV wall motion during rest is hypokinetic along the apex with dyskinesis during poststress. LV ej ection fraction is still within normal limits with a calculated stress ejection fraction of 62%. Find ings were discussed with Dr. Penaloza who will arrange for coronary angiogram. Dictated by: Jones Briceno Jr., M.D. on 02/23/2016 at 13:02 Approved by: Jones Briceno Jr., M.D. on 02/23/2016 at 13:02
--- NOTE | 2016-02-23 13:32 | PROG NOTE ---
[address] [address] PROGRESS NOTE PATIENT: LYNETTE MELGAR : 1960 MR#: [id number] ADMIT: 02/21/2016 JOB ID: [id number] DATE: 02/23/2016 SUBJECTIVE: The patient reports no recurrent jaw or teeth pain. He denies orthopnea, PND, palpitation or syncope. He is currently in dialysis. OBJECTIVE: Temperature is 36.9. Blood pressure is 134/77. Pulse 87. Weight is 57.4 kg. Head and face have normal configuration. Anicteric sclerae. Dry mucosa. Neck supple. No jugular venous distention. Chest: Limited chest expansion. Lungs are clear to auscultation anteriorly. Heart: The first and second heart sounds are normal. Continuous murmur, secondary to fistula flow. Abdomen: Soft. Extremities: No clubbing, cyanosis or edema. Flexion contracture. Right arm AV fistula is noted. BLOOD TESTS: Show cholesterol 160, triglyceride 97, HDL 36, LDL 104. The patient underwent Lexiscan sestamibi. The official report is not available at the present time. It appears that he had ejection fraction 62%. Small apical infarct with large anterior ischemia. IMPRESSION: 1. Non ST elevated myocardial infarction. 2. Left anterior ischemia. 3. Chronic progressive multiple sclerosis. 4. Chronic renal failure on hemodialysis. 5. History of hypertension. PLAN: In view of large anterior wall ischemia, the patient should undergo percutaneous coronary intervention. The risks and benefits of procedure have been explained to the patient. He understands and agreed to proceed with the procedure. The patient already taking clopidogrel 75 mg once daily. I will start him on aspirin 81 mg once daily. He agreed to give aspirin a try. [facility]
[2016-02-23 13:41] LABS: TROPONIN T 4.01 ug/L (0.0-0.011)
--- NOTE | 2016-02-23 15:35 | NUR ---
Dialysis note: 4 hrs tx. 1000 ml net UF per pt's request. Right upper arm fistula. BMP, Troponin, PT/INR drawn. Pls see DTR for VS details. Qb 375-400. No extra heparin given, already on heparin drip. O2 @ 2L via NC on. Lab result K 6.0 - Dr. Bowen notified, changed to 1K acid bath the last hour of tx. Stable treatment. Fistula needle sites clotted w/in 20 min. Report given to Macarena Garcia RN. Started to have nosebleed prior to move, cleaned up and transferred back to patient's room.
--- NOTE | 2016-02-23 15:43 | NUR ---
Dialysis/nose bleed/sore throat pt returned to room from dialysis in bed. Nose bleed just started prior to coming to room, left nare. pt states has a sore throat starting this am and nasal congestion. Addendum: 02/23/16 at 1558 by LIZZIE VIZCARRA RN Dr Lauri hood via text. Addendum: 02/23/16 at 1601 by LIZZIE VIZCARRA RN returned call and will come shortly and assess patient. Addendum: 02/23/16 at 1701 by LIZZIE VIZCARRA RN left nare packed with kleenex, drainage stopped but packing left in place.
--- NOTE | 2016-02-23 17:31 | PCM.PNMED ---
Subjective Date of Service Feb 23, 2016 Subjective Pt seen and examined. Patient has no complaints today and does not have any jaw pain like he did previously. Patient tolerated dialysis without any hypotensive episodes. Patient is currently stable Exam Vital Signs Vital Sign - Last Date Time Temp Pulse Resp B/P Pulse Ox O2 Delivery O2 Flow Rate FiO2 02/23/16 15:45 36.9 96 20 95/62 96 Room Air Intake and Output 02/22/16 02/22/16 02/23/16 Cumulative From/Thru 15:00 23:00 07:00 02/21/16 00:06 - 02/23/16 05:29 Intake Total 120 ml 33 ml 100 ml 1673 ml Output Total 0 ml 1000 ml Balance 120 ml 33 ml 100 ml 673 ml Intake Oral 120 ml 100 ml 640 ml IV Total 33 ml 1033 ml Output Urine Total 0 ml 0 ml Ultrafiltrate 1000 ml # Voids 1 1 # Bowel Movements 0 1 1 Exam General: frail man in no acute distress HEENT: sclerae anicteric, oral mucosa moist Neck: no JVD Chest: clear to auscultation Cardiac: S1S2, no murmur Abdomen: BS present, non-tender to palpate Extremities: No edema; bilateral bandaged 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; no erythema swelling or redness Neuro: A&O, cranial nerves symmetric, motor strength 5/5, IVs and Medications Medications Reviewed: Medications were reviewed in detail Lab and Diagnostics Result Diagram: 02/22/16 0342 02/23/16 1110 X-Rays, CTs and MRIs Chest x-ray is pending at the time of this dictation 12-lead ECG Sinus rate of [address] segment changes V2 V3 peak T-wave Assessment & Plan # NSTEMI, acute, present on admission Has elevated troponin with left jaw pain Cardiology was notified by ER Elie and recommended IV heparin protocol, ASA, Plavix and statin Cardiology input appreciated will add plavix and statin as per cardiology recs given patient new wishes will restart the heparin drip stress test shows areas of ischemia with preserved heart function will go for angiogram tomorrow troponins trending downward # Hyperkalemia with some EKG changes, acute, present on admission Pt underwent dialysis today will follow up repeat bmp after HD # End stage renal disease on hemodialysis, chronic, present on admission - dialyzed today # Multiple sclerosis, chronic, present on admission Currently progressive # DVT prophylaxis Patient currently is on cardiac IV heparin protocol # CODE STATUS Patient is full code GI Prophylaxis: H2 adela VTE Prophylaxis: Other (cardiac IV heparin protocol) Resuscitation Status: CPR: Attempt Resuscitation GI Prophylaxis: H2 adela VTE Prophylaxis: Other (cardiac IV heparin protocol) Resuscitation Status: CPR: Attempt Resuscitation Seth Carreon MD Feb 23, 2016 17:30
--- NOTE | 2016-02-23 18:29 | NUR ---
Nose bleed left nare started bleeding again, big clot present, area pooling at back of throat. Pt requesting heparin to be discontinued. Request made to MD, awaiting return call.
--- NOTE | 2016-02-23 18:48 | PCM.PNMED ---
Subjective Date of Service Feb 23, 2016 Subjective CROSS COVER left nares bleeding, typically he has right nares bleeding, heparin gtt until tomorrow 5am per physician office nurse --[facility], place rhinorocket, leave in for 3 days, no procedure planned while undergoing cardiac cath tomorrow, but he will be in clinic and would like an update of epistaxis --rhinorocket placed 8cc of air infused --Hg serial now and at 5am, patient verbally consent to transfusion PRN w/ risk and benefits explained, witnessed by RN, quadriplegic Pt complains of new sore throat and new fever, functional quadriplegia due to MS , no cough, baseline diminished lung sounds --CXR, strep screen, mrsa screen, sputum cx --flu screen negative Exam Vital Signs Vital Sign - Last Date Time Temp Pulse Resp B/P Pulse Ox O2 Delivery O2 Flow Rate FiO2 02/23/16 15:45 36.9 96 20 95/62 96 Room Air Intake and Output 02/22/16 02/22/16 02/23/16 Cumulative From/Thru 15:00 23:00 07:00 02/21/16 00:06 - 02/23/16 05:29 Intake Total 120 ml 33 ml 100 ml 1673 ml Output Total 0 ml 1000 ml Balance 120 ml 33 ml 100 ml 673 ml Intake Oral 120 ml 100 ml 640 ml IV Total 33 ml 1033 ml Output Urine Total 0 ml 0 ml Ultrafiltrate 1000 ml # Voids 1 1 # Bowel Movements 0 1 1 Lab and Diagnostics Result Diagram: 02/22/16 0342 02/23/16 1110 X-Rays, CTs and MRIs Chest x-ray is pending at the time of this dictation 12-lead ECG Sinus rate of [address] segment changes V2 V3 peak T-wave Assessment & Plan # NSTEMI, acute, present on admission Has elevated troponin with left jaw pain Cardiology was notified by ER Elie and recommended IV heparin protocol, ASA, Plavix and statin Cardiology input appreciated will add plavix and statin as per cardiology recs given patient new wishes will restart the heparin drip stress test shows areas of ischemia with preserved heart function will go for angiogram tomorrow troponins trending downward # Hyperkalemia with some EKG changes, acute, present on admission Pt underwent dialysis today will follow up repeat bmp after HD # End stage renal disease on hemodialysis, chronic, present on admission - dialyzed today # Multiple sclerosis, chronic, present on admission Currently progressive # DVT prophylaxis Patient currently is on cardiac IV heparin protocol # CODE STATUS Patient is full code GI Prophylaxis: H2 adela VTE Prophylaxis: Other (cardiac IV heparin protocol) Resuscitation Status: CPR: Attempt Resuscitation GI Prophylaxis: H2 adela VTE Prophylaxis: Other (cardiac IV heparin protocol) Resuscitation Status: CPR: Attempt Resuscitation Kashif Burton MD Feb 23, 2016 18:48
--- NOTE | 2016-02-23 19:26 | NUR ---
rhinorocket/heparin/angiogram prep requested baldoo blair for her to place tonight. Continue heparin Per [facility] RN stop heparin 4 hours prior to procedure (9am) Have [address] NPO 8 hours prior to procedure
[2016-02-24] MEDS: Sodium Chloride LOK Flush 10 mL Syringe IVFLUSH SCH (00:50)
[2016-02-24 01:03] VITALS: BP 122/84; PULSE 111; RESP 20; O2SAT 97
--- NOTE | 2016-02-24 01:50 | NUR ---
fever/rhinorocket/heparin pt complained of feeling hot and weaker then normal and also complained of a sore throat. temp was 100.2, tylenol was given for comfort. Dr. Burton notified who ordered rapid influenza and rapid strep. she also ordered lab to check Hematocrit due to his continuos nose bleed. order was to infuse 1 unit of PRBC if hematocrit was less than 8. hematocrit came back 10.8, no blood infused at this time. Dr. Burton also placed a Rhinorocket in pts L nare. PTT came back [address] Burton was consulted who said to not give the 1000unit heparin bolus that the protocol called for but that nurse should increase the drip per protocol. heparin dripped was increased to 950units/hr. However pts nose began to bleed again and come out around the rhinorocket. Dr. Benoit was paged who came and saw the pt. he ordered the heparin drip D/C at this time. fever has gone up and down but no greater then 100.2. will continue to monitor. Addendum: 02/24/16 at 0252 by CLARENCE RODRIGUEZ RN clarification order was to infuse if hemoglobin was less than 8. hemoglobin was 10.8 not hematocrit.
[2016-02-24 05:01] VITALS: PULSE 129
--- NOTE | 2016-02-24 05:21 | NUR ---
Called to [facility] for pt in respiratory distress. Pt sats were in the high 70, and it was explained that he had aspirated a blood clot from his bloody. Pt had no breath sounds on the right side. NT sxn X3 which produced quite a bit vonnie blood and clots. I contacted the doctor to inform him, pt transferred to CCU for higher level of care.
[2016-02-24 05:22] LABS: Mean Corpuscular Hemoglobin 32.7 pg (27.0-35.0); Mean Corpuscular Volume 100.9 fL (81-100)
[2016-02-24 05:43] LABS: Phosphorus 4.9 mg/dL (2.5-4.9)
--- NOTE | 2016-02-24 05:48 | NUR ---
TRANSFER TO CCU pt started complaining of increased difficulty breathing around 0400. 02 sat was 70% on RA and would not go above mid 80's even on 15L of 02, pt was previously high 90s on RA. tele showed sinus tach 120s. respiratory therapy was called who after assessment recommended repeat chest xray and NT suctioning. MD agreed and the NT suctioning was performed. 02 sats increased to 92% on o2. however pt had no breath sounds on R side. respiratory consulted with who ordered transfer to CCU. pt transferred at 0520 to room 2016 with all of his possessions, meds and chart. Pts Sister was called and notified of transfer. bedside report was given to CCU nurse. Addendum: 02/24/16 at 0650 by CLARENCE RODRIGUEZ RN MD notified multiple times throughout shift of pt complaints of bleeding down the back of his throat and feeling congested. Dr. Burton saw pt twice before signing off and Dr. Benoit saw pt twice throughout the shift as well.
[2016-02-24 06:00] VITALS: BP 140/70; PULSE 129; RESP 32; O2SAT 86
[2016-02-24] MEDS ORDERED: Propofol 10,000 mCg/mL 100 mL Inj ONE (06:29)
[2016-02-24] MEDS ORDERED: Propofol Inj 1,000,000 MCG in IV Premix 1 EACH IV SCH (06:30)
[2016-02-24] MEDS ORDERED: fentaNYL 2,500 mCg/250 mL IV Premix IV SCH (06:30)
[2016-02-24] MEDS ORDERED: fentaNYL 2,500 mCg/250 mL Premix IV ONE (06:30)
[2016-02-24] MEDS ORDERED: EPINEPHrine 0.1 mg/mL 10 mL Syringe ONE (06:59)
[2016-02-24] MEDS ORDERED: Succinylcholine Chloride 20 mg/mL 5 mL Inj ONE (06:59)
[2016-02-24] MEDS ORDERED: Atropine 1 mg/10 mL (Code) Syringe ONE (06:59)
--- NOTE | 2016-02-24 07:19 | PCM.EDPN ---
ED Note Date of Service Feb 24, 2016 55-year-old male with a history of MS end-stage renal disease on dialysis and recent and STEMI now having episodes of epistaxis and hypoxia. He has diminished breath sounds on the right side not to be related to a thrombus occluding the right mainstem. It is asked that I intubated the patient for bronchoscopy and prior to sending patient to analyst microbiology lab for an STEMI. Patient is awake and consents to the procedure. He was successfully intubated as documented below. About 8 minutes later NATHANIEL TORRES was called. Patient's oxygen saturations descended and respiratory therapy was unable to pass a suction catheter through the ET tube until flush was done and a large thrombus was sucked out into the respirator. Several other attempts were made to flush and suction the ET tube until full bilateral breath sounds were appreciated and pulse ox began to rise back to 90. Pulse ox dropped into the 60s. Heart rate dropped and patient was given atropine. Nathaniel blue was called. Patient then went into PEA and CPR was performed with compressions and epinephrine every 2 minutes. There was significant difficulty maintaining a monitor for SPO2. CPR was performed for proximally 15 minutes when the family decided to call the code. After the code was called patient had a pulse and was in V. tach. Patient was cardioverted 2 additional times and amiodarone push of 300 mg given. Patient again had bradycardia and atropine was again given. Patient had a thready and disorganized pulse. At this point the family and providers made the decision to discontinue CPR. Time of 701. Cause of hypoxia/respiratory failure due to airway thrombus leading to cardiac arrest. Please see Dr. Reece's note and the paper chart for other documentation. I assisted with this patient for 45 minutes of critical care time which required my full and divided attention. Procedures Intubation : Time: 06:30 Consent / Setup / Site Prep: Informed consent provided, Consent from patient Patient Position: Sniff position Blade / ET Tube / Route: Chilo scope Procedural Sedation/Analgesia: Sedation: Etomidate Neuromuscular Agent: Succinylcholine ET Confirmation: Direct visualization, BS equal (diminished R sided breath sounds due to occluding thrombus in r mainstem bronchus), Rising O2 sat Secured / Marked: ET tube device, Adhesive tape Complications: None Exam General/Constitutional: Well-developed (cachectic and frail) Head / Eyes: Atraumatic ENT: Mucous membranes moist Neck: Supple Cardiovascular: Regular rate & rhythm Abdomen / GI: Soft Extremities: Vascular intact (av fistula r) Kip Sanchez DO Feb 24, 2016 07:19
--- NOTE | 2016-02-24 07:30 | NUR ---
Transfer to CCU/Lavonne Romero Pt transferred to CCU ~0530 from [facility] in respiratory distress. SpO2 low 80s on 15L Nonrebreather. Had rhino rocket in L nare for significant nosebleed that continued to bleed into mask. Switched to oxymask for MD to talk with pt and clearly state he did not want to be intubated for residential life support, but does want heroic measures besides intubation. c/o 8/10 pleuritic CP somewhat relieved by morphine. Started noticing ST changes in V lead and immediately notified MD. Pt family called in to hospital for worsening condition. Dr Reece was able to get pt to agree to intubation for procedure possible PCI and bronchoscopy. Emergent intubation performed without incident. Significant blood and blood clots in ET tube. At one point, unable to ventilate because of blood clot in ET tube. At that point pt tele showed bradycardia and lost pulse. Lavonne romero called at 0637. TOD 0700 and we were not able to recover pulse. Family at bedside
[2016-02-24] MEDS ORDERED: Heparin 1,000 Units/500 mL NS Premix IV ONE (08:04)
[2016-02-24] MEDS ORDERED: Heparin 1,000 Unit/mL 10 mL Inj ONE (08:05)
[2016-02-24] MEDS ORDERED: Heparin 5,000 Units/500 mL NS Premix IV ONE (08:05)
[2016-02-24] MEDS ORDERED: Nitroglycerin 50,000 mcg/250 mL D5W Premix IV ONE (08:15)
--- NOTE | 2016-02-24 08:26 | DRSVH ---
PROCEDURE: X-RAY CHEST ONE VIEW ([id number]) INDICATIONS: aspiration TECHNIQUE: One view of the chest was acquired. COMPARISON: [facility], CR, XR CHEST 1VW (PORTABLE), 02/23/2016, 21:57. FINDINGS: Surgical changes and devices: None. Lungs and pleura: No pleural effusions or pneumothorax. The right apex is partially obscured the pa tient's mandible. There are a few streaky bibasilar infrahilar opacities. Mediastinum: Mediastinal contours appear prominent likely due to rotation. Heart size is normal. Bones and chest wall: No suspicious bony lesions. Overlying soft tissues appear unremarkable. IMPRESSION: 1. Mild streaky bibasilar infrahilar opacities may reflect suspected aspiration, versus atelectasis. Dictated by: Rayo Rader M.D. on 02/24/2016 at 8:25 Approved by: Rayo Rader M.D. on 02/24/2016 at 8:25
--- NOTE | 2016-02-24 10:12 | DRSVH ---
PROCEDURE: X-RAY CHEST ONE VIEW, PORTABLE ([id number]) INDICATIONS: fever TECHNIQUE: One view of the chest was acquired. COMPARISON: [facility], CR, XR CHEST 1VW (PORTABLE), 02/21/2016, 5:51. FINDINGS: Surgical changes and devices: None. Lungs and pleura: No pleural effusions or pneumothorax. Lungs are clear. Mediastinum: Mediastinal contours appear normal. Heart size is normal. Bones and chest wall: No suspicious bony lesions. Evaluation is again limited in the lung bases sec ondary to patient's overlying hand and wrist. IMPRESSION: 1. No definite acute cardiopulmonary disease. Dictated by: Rayo Rader M.D. on 02/24/2016 at 10:11 Approved by: Rayo Rader M.D. on 02/24/2016 at 10:11
--- NOTE | 2016-02-24 14:37 | NUR ---
Palliative care note D/A: Pt today while in CCU. Staff member discussed with palliative care (Zoila WEI) after that pt family requested to talk to PC. (PC has not been involved in this case.) During discussion today with Carli from dialysis, regarding another dialysis pt, Carli remarked that Isauro had been a dialysis pt for 14 years. Case discussed at PC rounds. Decision reached to reach out to DAVID Boyce and ask if she can discuss with family and find out what their request might be. Left message and discussed with Carli who will discuss with family. Carli noted that pt bro stopped by early this am to dialysis but it was prior to her arrival this am so that she did not get a chance to talk to pt. P: Palliative care to follow. [facility] Addendum: 02/24/16 at 1457 by MICHAEL FAGAN PC note amendment D/A: Return call from DAVID Boyce. She notes that she discussed with pt sister Tessa. Family had misunderstood intent of Palliative Care consult, no need for PC outreach. P: No need for PC outreach at this time. [facility]
--- NOTE | 2016-02-25 06:55 | PCM.DC.MEX ---
Discharge Summary Date of Service Feb 25, 2016 Dates of Hospitalization Date of Hospital Admission Feb 21, 2016 at 02:38 Date of Expiration: Feb 24, 2016 Time of Expiration: 07:02 Providers: Admitting Physician: Amanda Matamoros MD Primary Care Physician: Jerrell Attending Physician: Amanda Matamoros MD Diagnosis at Time of Acute cardiac arrest Additional Diagnosis Epistaxis NSTEMI Respiratory arrest Procedures XRay, CTs & MRIs Chest x-ray is pending at the time of this dictation ECG 12 Lead Sinus rate of [address] segment changes V2 V3 peak T-wave Brief History This is a 55-year-old male with a history of multiple sclerosis who essentially not able to use his arms bilaterally and legs. He also has end-stage renal disease is on hemodialysis followed by Dr. Jiang's group. He had several hours of left sided jaw pain. Started around 9:00 while he was lying in bed. Lasted for approximately 2 hours. He denies any history of coronary artery disease. He felt diaphoretic with this but did not have any shortness of breath. Denied any chest pain abdominal pain or nausea or vomiting. His dialysis days are Saturday. He does note that his potassium has been running high and prior to last dialysis on Saturday it was 6.2. He was given Kayexalate. His evaluation in the emergency room includes potassium level of 5.8 with BUN of 86 creatinine of 6.96 this first troponin was 0.49. He did have some T-wave peaks in V2 and V3. ER physician contacted Dr. Lucia damon who recommended ASA Plavix statin heparin drip along with an echocardiogram and he will see the patient in the a.m. Also nephrology Dr. Gan was called and recommended Kayexalate 15 g by mouth and will dialyze in the morning. Hospital Course # NSTEMI, acute, present on admission Has elevated troponin with left jaw pain Cardiology was notified by ER Elie and recommended IV heparin protocol, ASA, Plavix and statin Cardiology input appreciated will add plavix and statin as per cardiology recs given patient new wishes will restart the heparin drip stress test shows areas of ischemia with preserved heart function will go for angiogram tomorrow troponins trending downward # Hyperkalemia with some EKG changes, acute, present on admission Pt underwent dialysis today will follow up repeat bmp after HD # End stage renal disease on hemodialysis, chronic, present on admission - dialyzed today # Multiple sclerosis, chronic, present on admission Currently progressive # DVT prophylaxis Patient currently is on cardiac IV heparin protocol Patient at 0702 on 02/24/2016 According to nursing reports, patient aspirated numerous blood clots from ongoing epistaxis with acute desaturation into the mid and upper 70s. Pt was on heparin for NSTEMI on admission, and this was stopped when epistaxis was discovered. Patient was transferred to the CCU. Discussion was had with patient who previously wished to be DNR/DNI to allow intubation prior to undergoing bronchoscopy to remove occluding blood clots in his airway. This change of status was to be temporary and the patient wished to be extubated following bronchoscopy as he did not wish to remain on prolonged ventilatory support. Pulmonology was consulted and Dr. Jimenez and agreed to perform the endoscopy and recommended that intubation be done to stabilize the patient. Dr. Sanchez from the ED came to the floor and intubated the patient. Please see his notes for his account. Shortly after intubation, while undergoing confirmation by CXR, patient acutely decompensated with saturations in the upper 60s. Suction was applied to the ET tube and a large obstructing blood clot was removed. At this time the patient began to show signs of bradycardia and he was given one syringe of atropine. He was placed in a supine position with backboard and CODE BLUE was initiated. Patient was intermittently between PEA, asystole, and briefly ventricular tachycardia. He was defibrillated twice and received 6 rounds of epinephrine and amiodarone 300mg push. His pulses were intermittent and nonsustained. He was unable to establish an organized rhythm. Discussion was had with his brother about his change of CODE STATUS and the appropriateness of continuing to perform heroic measures as the patient was previously DNR/DNI and not responding to CPR. After 20 minutes of CPR and manual ventilation, code was stopped and the patient at 7:02 AM. Exam Test 02/21/16 00:45 02/21/16 04:55 02/22/16 03:42 02/23/16 11:10 Total Bilirubin 0.3mg/dL (0.0-1.2) Aspartate Amino Transf (AST/SGOT) 23U/L (0-50) Alanine Aminotransferase (ALT/SGPT) 49U/L (0-44) Alkaline Phosphatase 105U/L (25-150) Total Protein 6.9g/dL (6.4-8.4) Lipase 188U/L (13-60) Hold Arguelles Top Tube Received (Received) Hemoglobin A1c 4.8% (4.8-5.6) Thyroid Stimulating Hormone (TSH) 2.560uIU/mL (0.450-4.500) Neutrophils (%) (Auto) 50.7% (40-74) Lymphocytes (%) (Auto) 35.2% (14-46) Monocytes (%) (Auto) 7.6% (4-12) Eosinophils (%) (Auto) 5.6% (0-5) Basophils (%) (Auto) 0.7% (0-3) Magnesium Level 2.4mg/dL (1.6-2.6) Triglycerides Level 97mg/dL (0-149) Cholesterol Level 160mg/dL (100-199) LDL Cholesterol, Calculated 104.600mg/dL (0-99) VLDL Cholesterol 19.400mg/dL HDL Cholesterol 36mg/dL (>39) Cholesterol/HDL Ratio 4.44 (0.0-4.4) Troponin T 4.01ug/L (0.0-0.011) Test 02/23/16 22:51 02/24/16 05:05 Activated Partial Thromboplast Time 45.3sec (22.8-33.0) White Blood Count 8.4th/mm3 (3.8-10.1) Red Blood Count 3.49mil/mm3 (4.40-5.80) Hemoglobin 11.4g/dL (13.8-17.2) Hematocrit 35.2% (41.0-50.0) Mean Corpuscular Volume 100.9fL (81-100) Mean Corpuscular Hemoglobin 32.7pg (27.0-35.0) Mean Corpuscular Hemoglobin Concent 32.4% (32.0-37.0) Red Cell Distribution Width 12.9% (12.3-15.4) Platelet Count 244bil/L (150-400) Sodium Level 142mEq/L (134-144) Potassium Level 6.0mEq/L (3.5-5.2) Chloride Level 100mEq/L (97-108) Carbon Dioxide Level 24mmol/L (18-29) Blood Urea Nitrogen 84mg/dL (6-24) Creatinine 5.30mg/dL (0.76-1.27) Estimat Glomerular Filtration Rate 12mL/min (>59) Glucose Level 124mg/dL (60-99) Calcium Level 9.5mg/dL (8.5-10.1) Phosphorus Level 4.9mg/dL (2.5-4.9) Albumin 3.9g/dL (3.4-5.0) Attending Statement I agree with the history and description of events as outlined in the note above. . Shane Reece DO Feb 25, 2016 06:55 Krish Garza MD Feb 25, 2016 07:56
== END 2016-02-24 07:00 | disposition expired ==
LOC: SED 23:54 → EDBD 23:54 → MOC 02-21 02:38 → CCU 02-24 05:08
PROVIDERS: ADMIT Specialist; ATTEND Specialist
PROC: 5A1D60Z (ICD-10-PCS; 2016-02-21)
PROC: 0BH17EZ Insertion of Endotracheal Airway into Trachea, Via Natural or Artificial Opening (ICD-10-PCS; principal; 2016-02-24)
PROC: 5A12012 Performance of Cardiac Output, Single, Manual (ICD-10-PCS; 2016-02-24)
PROC: 5A2204Z Restoration of Cardiac Rhythm, Single (ICD-10-PCS; 2016-02-24)
DX: I21.4 Non-ST elevation (NSTEMI) myocardial infarction (principal); N18.6 End stage renal disease; G82.50 Quadriplegia, unspecified; I46.9 Cardiac arrest, cause unspecified; R04.0 Epistaxis; E87.5 Hyperkalemia; G35 Multiple sclerosis; D63.1 Anemia in chronic kidney disease; Z66 Do not resuscitate; Z53.29 Procedure and treatment not carried out because of patient's decision for other reasons; Z99.2 Dependence on renal dialysis